=== PATIENT | female | born 1955 | race Hispanic/Latino ===

== ENCOUNTER 2018-08-31 21:00 | Inpatient (IN) | payer OTHER ==
[~2018-08-31] VITALS: Ht 154.9 cm; Wt 67.0 kg
[2018-08-31 21:27] LABS: BASOPHILS % (AUTO) 0.4 % (0.0-5.0); EOSINOPHILS % (AUTO) 1.2 % (0.0-8.0); LYMPHOCYTES % (AUTO) 9.6 % (21.0-51.0); MEAN CORPUSCULAR HEMOGLOBIN 29.7 pg (27.0-33.0); MEAN CORPUSCULAR HGB CONC 33.1 g/dL (32.0-36.0); MEAN CORPUSCULAR VOLUME 89.9 fL (79-99); MONOCYTES % (AUTO) 5.3 % (3.0-13.0); NEUTROPHILS % (AUTO) 83.5 % (40.0-77.0); PLATELET COUNT (AUTO) 286 K/uL (130-400); RED BLOOD CELL COUNT(AUTO) 4.45 MIL/uL (4.00-5.50); RED CELL DISTRIBUTION WIDTH 13.6 % (11.0-15.5); WHITE BLOOD COUNT (AUTO) 12.5 K/uL (4.8-10.8)
[2018-08-31] MEDS ORDERED: MORPHINE SULFATE 4 MG/1ML SYG ONE ×2 (21:36→22:29)
[2018-08-31] MEDS ORDERED: SODIUM CHLORIDE 0.9% 1000ML 1,000 ML IV ONE (21:36)
[2018-08-31] MEDS ORDERED: ONDANSETRON HCL 4 MG/2 ML VIAL ONE (21:36)
[2018-08-31 21:38] LABS: POTASSIUM 3.9 mmol/L (3.5-5.1)
[2018-08-31 21:42] LABS: ALBUMIN 3.5 g/dL (3.5-5.0); BILIRUBIN,TOTAL 0.4 mg/dL (0.2-1.0); TOTAL PROTEIN, SERUM 7.1 g/dL (6.0-8.3)
[2018-08-31] MEDS ORDERED: IOHEXOL-350 75 ML VIAL IV ONE (21:47)
[2018-08-31] MEDS ORDERED: ZOSYN 3.375GM+NS 50ML 50 ML IV ONE (22:29)
[2018-08-31] MEDS ORDERED: SODIUM CHLORIDE 0.9% 50 ML IV ONE (22:30)
[2018-08-31 22:53] LABS: APPEARANCE,URINE Clear (CLEAR); BILIRUBIN,URINE Negative (NEGATIVE); COLOR,URINE Yellow (YELLOW); GLUCOSE, URINE (UA) Negative (NEGATIVE); KETONES,URINE Negative (NEGATIVE); LEUKOCYTE ESTERASE ,URINE Large (NEGATIVE); NITRATE,URINE Negative (NEGATIVE); OCCULT BLOOD,URINE Negative (NEGATIVE); PH,URINE 6.5 (5.0-8.0); PROTEIN,URINE Negative (NEGATIVE); UROBILINOGEN,URINE 0.2 mg/dL (0.2-1.0)
[2018-08-31 23:09] LABS: BACTERIA,URINE Few /HPF (None Seen); RBC,URINE None Seen /HPF (0-1); SQUAMOUS EPITHELIAL CELL,UR Few /HPF (0-2)
[2018-09-01] MEDS ORDERED: SODIUM CHLORIDE 0.9% 1000ML 1,000 ML IV ONE (01:48)
[2018-09-01] MEDS ORDERED: MORPHINE SULFATE 4 MG/1ML SYG ONE (01:48)
[2018-09-01] MEDS ORDERED: HYDROMORPHONE 1 MG/1 ML AMP ONE (01:55)
[2018-09-01] MEDS ORDERED: ACETAMINOPHEN EXTRA STRENGTH 500 MG TABLET ONE (02:02)
[2018-09-01 02:35] VITALS: BP 120/54
[2018-09-01 05:49] LABS: HEMATOCRIT 34.8 % (36-48); MEAN CORPUSCULAR HEMOGLOBIN 31.4 pg (27.0-33.0); MEAN CORPUSCULAR HGB CONC 34.2 g/dL (32.0-36.0); MEAN CORPUSCULAR VOLUME 91.8 fL (79-99); PLATELET COUNT (AUTO) 290 K/uL (130-400); RED BLOOD CELL COUNT(AUTO) 3.79 MIL/uL (4.00-5.50); RED CELL DISTRIBUTION WIDTH 13.7 % (11.0-15.5); WHITE BLOOD COUNT (AUTO) 13.5 K/uL (4.8-10.8)
[2018-09-01 05:54] LABS: CREATININE 1.1 mg/dL (0.5-1.5); POTASSIUM 4.3 mmol/L (3.5-5.1)
[2018-09-01 08:00] VITALS: BP 98/53
[2018-09-01] MEDS: HYDROMORPHONE 1 MG/1 ML AMP IVP PRN ×2 (08:31→22:55)
[2018-09-01] MEDS ORDERED: SODIUM CHLORIDE 0.9% 1000ML 1,000 ML IV SCH (08:52)
[2018-09-01] MEDS: FAMOTIDINE/PF 20 MG/2 ML VIAL IV SCH ×2 (10:29→20:43)
[2018-09-01] MEDS: ONDANSETRON HCL 4 MG/2 ML VIAL IVP PRN (10:29)
[2018-09-01] MEDS: ZOSYN 3.375GM+NS 50ML 50 ML IV SCH ×2 (10:30→16:33)
[2018-09-01 11:00] VITALS: BP 92/44
[2018-09-01] MEDS: SODIUM CHLORIDE 0.9% 1000ML 1,000 ML IV SCH ×2 (12:00→18:38)
[2018-09-01 16:00] VITALS: BP 98/48
[2018-09-01 19:50] VITALS: BP 105/49
[2018-09-01 23:35] VITALS: BP 112/48
[2018-09-02] MEDS: ZOSYN 3.375GM+NS 50ML 50 ML IV SCH ×3 (01:32→16:24)
[2018-09-02] MEDS: SODIUM CHLORIDE 0.9% 1000ML 1,000 ML IV SCH ×3 (03:50→17:38)
[2018-09-02 04:00] VITALS: BP 117/62
[2018-09-02 05:09] LABS: HEMATOCRIT 32.9 % (36-48); MEAN CORPUSCULAR HEMOGLOBIN 30.7 pg (27.0-33.0); MEAN CORPUSCULAR HGB CONC 32.9 g/dL (32.0-36.0); MEAN CORPUSCULAR VOLUME 93.2 fL (79-99); PLATELET COUNT (AUTO) 227 K/uL (130-400); RED BLOOD CELL COUNT(AUTO) 3.53 MIL/uL (4.00-5.50); WHITE BLOOD COUNT (AUTO) 13.4 K/uL (4.8-10.8)
[2018-09-02 05:20] LABS: INR 1.19 (0.85-1.15); PARTIAL THROMBOPLASTIN TIME 33.1 SEC (26.3-35.5); POTASSIUM 3.9 mmol/L (3.5-5.1); PROTHROMBIN TIME 12.5 SEC (9.6-11.6)
[2018-09-02] MEDS: HYDROMORPHONE 1 MG/1 ML AMP IVP PRN ×2 (08:29→16:24)
[2018-09-02] MEDS: FAMOTIDINE/PF 20 MG/2 ML VIAL IV SCH ×2 (08:29→21:09)
[2018-09-02 08:30] VITALS: BP 115/54
[2018-09-02 12:39] VITALS: BP 119/60
[2018-09-02] MEDS: METRONIDAZOLE 500MG/100ML BAG 100 ML IV SCH ×2 (13:32→21:09)
[2018-09-02] MEDS ORDERED: ACETAMINOPHEN 325 MG TAB ONE (16:35)
[2018-09-02 17:12] VITALS: BP 131/60
[2018-09-02 19:00] VITALS: BP 115/58
[2018-09-02 23:00] VITALS: BP 102/57
[2018-09-03] MEDS: ZOSYN 3.375GM+NS 50ML 50 ML IV SCH ×3 (00:43→17:39)
[2018-09-03] MEDS: SODIUM CHLORIDE 0.9% 1000ML 1,000 ML IV SCH ×3 (00:43→20:38)
[2018-09-03 03:00] VITALS: BP 114/56
[2018-09-03] MEDS: METRONIDAZOLE 500MG/100ML BAG 100 ML IV SCH ×3 (05:37→20:38)
[2018-09-03] MEDS: ONDANSETRON HCL 4 MG/2 ML VIAL IVP PRN (05:43)
[2018-09-03] MEDS: MORPHINE SULFATE 4 MG/1ML SYG IVP PRN ×3 (05:43→23:34)
[2018-09-03 05:56] LABS: BASOPHILS % (AUTO) 0.4 % (0.0-5.0); EOSINOPHILS % (AUTO) 1.2 % (0.0-8.0); HEMATOCRIT 31.6 % (36-48); LYMPHOCYTES % (AUTO) 8.9 % (21.0-51.0); MEAN CORPUSCULAR HEMOGLOBIN 31.1 pg (27.0-33.0); MEAN CORPUSCULAR HGB CONC 33.2 g/dL (32.0-36.0); MEAN CORPUSCULAR VOLUME 93.6 fL (79-99); MONOCYTES % (AUTO) 2.9 % (3.0-13.0); NEUTROPHILS % (AUTO) 86.6 % (40.0-77.0); PLATELET COUNT (AUTO) 229 K/uL (130-400); RED BLOOD CELL COUNT(AUTO) 3.38 MIL/uL (4.00-5.50); RED CELL DISTRIBUTION WIDTH 13.8 % (11.0-15.5); WHITE BLOOD COUNT (AUTO) 11.3 K/uL (4.8-10.8)
[2018-09-03 06:05] LABS: CREATININE 0.8 mg/dL (0.5-1.5); POTASSIUM 3.5 mmol/L (3.5-5.1)
[2018-09-03 09:16] VITALS: BP 138/57
[2018-09-03] MEDS: FAMOTIDINE/PF 20 MG/2 ML VIAL IV SCH ×2 (09:55→20:38)
[2018-09-03] MEDS: ENOXAPARIN SODIUM 30 MG/0.3 ML SQ SCH (09:56)
[2018-09-03 12:18] VITALS: BP 144/71
[2018-09-03] MEDS ORDERED: POTASSIUM CHLORIDE 10% ELIXIR 20 MEQ/15 ML UDCUP PO SCH (14:00)
[2018-09-03 16:52] VITALS: BP 140/69
[2018-09-03] MEDS ORDERED: BISACODYL 10 MG SUPP.RECT RC ONE (17:45)
[2018-09-03] MEDS: KETOROLAC TROMETHAMINE 15MG/ML IV PRN (18:00)
[2018-09-03 19:00] VITALS: BP 138/64
[2018-09-04] VITALS (7 sets, daily range): BP systolic 122–156; BP diastolic 56–79
[2018-09-04] MEDS: ZOSYN 3.375GM+NS 50ML 50 ML IV SCH ×3 (00:39→16:23)
[2018-09-04 05:47] LABS: MEAN CORPUSCULAR HGB CONC 32.9 g/dL (32.0-36.0); MEAN CORPUSCULAR VOLUME 91.2 fL (79-99); PLATELET COUNT (AUTO) 239 K/uL (130-400); RED BLOOD CELL COUNT(AUTO) 3.51 MIL/uL (4.00-5.50); RED CELL DISTRIBUTION WIDTH 13.6 % (11.0-15.5); WHITE BLOOD COUNT (AUTO) 11.8 K/uL (4.8-10.8)
[2018-09-04] MEDS: METRONIDAZOLE 500MG/100ML BAG 100 ML IV SCH ×3 (05:51→21:18)
[2018-09-04] MEDS: KETOROLAC TROMETHAMINE 15MG/ML IV PRN (05:51)
[2018-09-04 05:55] LABS: CREATININE 0.9 mg/dL (0.5-1.5); POTASSIUM 3.9 mmol/L (3.5-5.1)
[2018-09-04 06:06] LABS: CRP QUANTITATIVE 269.2 mg/L (0.00-9.0)
[2018-09-04] MEDS: ENOXAPARIN SODIUM 30 MG/0.3 ML SQ SCH (09:56)
[2018-09-04] MEDS: FAMOTIDINE/PF 20 MG/2 ML VIAL IV SCH ×2 (09:56→21:18)
[2018-09-04] MEDS ORDERED: DIATR MEGLU/DIATRIZOATE SODIUM 30 ML BOTTLE ONE (13:16)
[2018-09-04] MEDS: DEXTROSE 5 % AND 0.9 % NACL 1,000 ML IV SCH ×3 (13:47→23:56)
[2018-09-04] MEDS ORDERED: IOHEXOL-350 75 ML VIAL IV ONE (16:17)
[2018-09-05] MEDS: ZOSYN 3.375GM+NS 50ML 50 ML IV SCH ×4 (00:41→23:42)
[2018-09-05 03:00] VITALS: BP 135/72
[2018-09-05 05:36] LABS: MEAN CORPUSCULAR HEMOGLOBIN 30.8 pg (27.0-33.0); MEAN CORPUSCULAR HGB CONC 34.3 g/dL (32.0-36.0); MEAN CORPUSCULAR VOLUME 89.8 fL (79-99); PLATELET COUNT (AUTO) 291 K/uL (130-400); RED BLOOD CELL COUNT(AUTO) 3.68 MIL/uL (4.00-5.50); RED CELL DISTRIBUTION WIDTH 13.3 % (11.0-15.5); WHITE BLOOD COUNT (AUTO) 9.8 K/uL (4.8-10.8)
[2018-09-05 05:57] LABS: BILIRUBIN,TOTAL 0.5 mg/dL (0.2-1.0); CREATININE 0.9 mg/dL (0.5-1.5); TOTAL PROTEIN, SERUM 5.9 g/dL (6.0-8.3)
[2018-09-05] MEDS: METRONIDAZOLE 500MG/100ML BAG 100 ML IV SCH ×3 (05:57→20:29)
[2018-09-05] MEDS: DEXTROSE 5 % AND 0.9 % NACL 1,000 ML IV SCH (05:59)
[2018-09-05 06:01] LABS: POTASSIUM 2.9 mmol/L (3.5-5.1)
[2018-09-05 06:18] LABS: CRP QUANTITATIVE 197.1 mg/L (0.00-9.0)
[2018-09-05] MEDS ORDERED: POTASSIUM CHLORIDE 20MEQ/100ML 100 ML IV PRN ×2 (07:00)
[2018-09-05] MEDS ORDERED: POTASSIUM CHLORIDE 20 MEQ ERTAB PO PRN (07:00)
[2018-09-05] MEDS ORDERED: POTASSIUM CHLORIDE 10% ELIXIR 20 MEQ/15 ML UDCUP PO PRN (07:00)
[2018-09-05] MEDS ORDERED: LIDOCAINE HCL-MPF 1% 2ML VIAL IVP PRN ×2 (07:00)
[2018-09-05 08:00] VITALS: BP 145/78
[2018-09-05] MEDS ORDERED: POTASSIUM CHLORIDE 10% ELIXIR 20 MEQ/15 ML UDCUP PO SCH (09:00)
[2018-09-05] MEDS: FAMOTIDINE/PF 20 MG/2 ML VIAL IV SCH ×2 (10:59→20:30)
[2018-09-05] MEDS: ENOXAPARIN SODIUM 30 MG/0.3 ML SQ SCH (11:00)
[2018-09-05] MEDS: POTASSIUM CHLORIDE IV SCH ×2 (11:01→19:00)
[2018-09-05] MEDS: NACL IV SCH ×2 (11:01→19:00)
[2018-09-05] MEDS: DEXTROSE IV SCH ×2 (11:01→19:00)
[2018-09-05 12:00] VITALS: BP 141/65
[2018-09-05] MEDS ORDERED: KETOROLAC TROMETHAMINE 15MG/ML IV PRN (12:45)
[2018-09-05] MEDS ORDERED: KETOROLAC TROMETHAMINE 30MG/ML ONE (12:57)
[2018-09-05 16:00] VITALS: BP 138/75
[2018-09-05 19:00] VITALS: BP 158/77
[2018-09-06] VITALS: BP 141/77
[2018-09-06 04:00] VITALS: BP 159/73
[2018-09-06] MEDS: POTASSIUM CHLORIDE IV SCH ×2 (05:00→18:24)
[2018-09-06] MEDS: DEXTROSE IV SCH ×2 (05:00→18:24)
[2018-09-06] MEDS: NACL IV SCH ×2 (05:00→18:24)
[2018-09-06 07:00] VITALS: BP 150/65
[2018-09-06] MEDS: METRONIDAZOLE 500MG/100ML BAG 100 ML IV SCH ×3 (07:25→20:46)
[2018-09-06] MEDS: KETOROLAC TROMETHAMINE 15MG/ML IV PRN ×2 (07:27→13:22)
[2018-09-06] MEDS: FAMOTIDINE/PF 20 MG/2 ML VIAL IV SCH ×2 (09:37→20:46)
[2018-09-06] MEDS: ZOSYN 3.375GM+NS 50ML 50 ML IV SCH ×2 (09:37→18:24)
[2018-09-06] MEDS: ENOXAPARIN SODIUM 30 MG/0.3 ML SQ SCH (09:37)
[2018-09-06 11:00] VITALS: BP 146/77
[2018-09-06 11:17] LABS: CREATININE 0.8 mg/dL (0.5-1.5); HEMATOCRIT 33.1 % (36-48); MEAN CORPUSCULAR HEMOGLOBIN 29.9 pg (27.0-33.0); MEAN CORPUSCULAR HGB CONC 33.4 g/dL (32.0-36.0); MEAN CORPUSCULAR VOLUME 89.5 fL (79-99); PLATELET COUNT (AUTO) 278 K/uL (130-400); RED CELL DISTRIBUTION WIDTH 13.6 % (11.0-15.5); WHITE BLOOD COUNT (AUTO) 12.6 K/uL (4.8-10.8)
[2018-09-06] MEDS ORDERED: POTASSIUM CHLORIDE 10MEQ/100ML 100 ML IV PRN ×2 (13:00→13:30)
[2018-09-06] MEDS ORDERED: POTASSIUM CHLORIDE 10% ELIXIR 20 MEQ/15 ML UDCUP PO PRN ×2 (13:00→13:30)
[2018-09-06] MEDS ORDERED: LIDOCAINE HCL-MPF 1% 2ML VIAL IVP PRN (13:00)
[2018-09-06] MEDS ORDERED: POTASSIUM CHLORIDE 20 MEQ ERTAB PO PRN ×2 (13:00→13:30)
[2018-09-06 16:00] VITALS: BP 154/67
[2018-09-06] MEDS: HYDROMORPHONE 1 MG/1 ML AMP IVP PRN (18:26)
[2018-09-06 19:00] VITALS: BP 135/64
[2018-09-06] MEDS ORDERED: POTASSIUM CHLORIDE 20MEQ/100ML 100 ML IV ONE (20:06)
[2018-09-07] VITALS (7 sets, daily range): BP systolic 128–162; BP diastolic 66–77
[2018-09-07] MEDS: POTASSIUM CHLORIDE IV SCH ×2 (01:00→13:54)
[2018-09-07] MEDS: DEXTROSE IV SCH ×2 (01:00→13:54)
[2018-09-07] MEDS: NACL IV SCH ×2 (01:00→13:54)
[2018-09-07] MEDS: ZOSYN 3.375GM+NS 50ML 50 ML IV SCH ×3 (01:17→20:15)
[2018-09-07] MEDS: HYDROMORPHONE 1 MG/1 ML AMP IVP PRN ×2 (02:16→09:01)
[2018-09-07] MEDS: METRONIDAZOLE 500MG/100ML BAG 100 ML IV SCH ×3 (05:07→20:09)
[2018-09-07 05:19] LABS: HEMATOCRIT 31.7 % (36-48); MEAN CORPUSCULAR HEMOGLOBIN 30.8 pg (27.0-33.0); MEAN CORPUSCULAR HGB CONC 34.1 g/dL (32.0-36.0); MEAN CORPUSCULAR VOLUME 90.5 fL (79-99); PLATELET COUNT (AUTO) 330 K/uL (130-400); RED BLOOD CELL COUNT(AUTO) 3.51 MIL/uL (4.00-5.50); RED CELL DISTRIBUTION WIDTH 13.9 % (11.0-15.5); WHITE BLOOD COUNT (AUTO) 10.2 K/uL (4.8-10.8)
[2018-09-07 05:25] LABS: CREATININE 0.9 mg/dL (0.5-1.5); MAGNESIUM 1.5 mg/dL (1.80-2.40); POTASSIUM 3.3 mmol/L (3.5-5.1)
[2018-09-07] MEDS: FAMOTIDINE/PF 20 MG/2 ML VIAL IV SCH ×2 (08:57→20:09)
[2018-09-07] MEDS: ENOXAPARIN SODIUM 30 MG/0.3 ML SQ SCH (09:03)
[2018-09-07] MEDS ORDERED: IOHEXOL-350 75 ML VIAL IV ONE (09:16)
[2018-09-07] MEDS ORDERED: DIATR MEGLU/DIATRIZOATE SODIUM 30 ML BOTTLE ONE ×2 (09:16→11:58)
[2018-09-07] MEDS: MAGNESIUM 2GM PREMIX 50ML 50 ML IV PRN (13:57)
[2018-09-08] VITALS (14 sets, daily range): BP systolic 129–159; BP diastolic 66–83
[2018-09-08] MEDS: ZOSYN 3.375GM+NS 50ML 50 ML IV SCH ×3 (01:53→17:34)
[2018-09-08] MEDS: POTASSIUM CHLORIDE IV SCH ×3 (03:25→17:00)
[2018-09-08] MEDS: DEXTROSE IV SCH ×3 (03:25→17:00)
[2018-09-08] MEDS: NACL IV SCH ×3 (03:25→17:00)
[2018-09-08] MEDS: HYDROMORPHONE 1 MG/1 ML AMP IVP PRN ×3 (03:25→18:34)
[2018-09-08 05:13] LABS: HEMATOCRIT 31.6 % (36-48); MEAN CORPUSCULAR HEMOGLOBIN 30.7 pg (27.0-33.0); MEAN CORPUSCULAR HGB CONC 34.1 g/dL (32.0-36.0); MEAN CORPUSCULAR VOLUME 89.9 fL (79-99); PLATELET COUNT (AUTO) 390 K/uL (130-400); RED BLOOD CELL COUNT(AUTO) 3.52 MIL/uL (4.00-5.50); WHITE BLOOD COUNT (AUTO) 11.6 K/uL (4.8-10.8)
[2018-09-08 05:29] LABS: CREATININE 0.8 mg/dL (0.5-1.5); MAGNESIUM 1.7 mg/dL (1.80-2.40); POTASSIUM 3.2 mmol/L (3.5-5.1)
[2018-09-08] MEDS: METRONIDAZOLE 500MG/100ML BAG 100 ML IV SCH ×3 (06:10→20:23)
[2018-09-08] MEDS: FAMOTIDINE/PF 20 MG/2 ML VIAL IV SCH ×2 (08:42→20:01)
[2018-09-08] MEDS: MAGNESIUM 2GM PREMIX 50ML 50 ML IV PRN (13:05)
[2018-09-08] MEDS ORDERED: LIDOCAINE HCL 2% 20ML ONE (13:26)
[2018-09-08] MEDS ORDERED: MIDAZOLAM HCL 1 MG/ML 2ML VIAL ONE (13:37)
[2018-09-08] MEDS ORDERED: FENTANYL CITRATE PF 50 MCG/1 ML 2ML VIAL ONE (13:37)
[2018-09-08] MEDS: ENOXAPARIN SODIUM 30 MG/0.3 ML SQ SCH (15:37)
[2018-09-09] MEDS: ZOSYN 3.375GM+NS 50ML 50 ML IV SCH ×3 (02:14→17:15)
[2018-09-09] MEDS: HYDROMORPHONE 1 MG/1 ML AMP IVP PRN ×2 (02:14→18:00)
[2018-09-09 03:00] VITALS: BP 131/71
[2018-09-09] MEDS: POTASSIUM CHLORIDE IV SCH ×2 (03:00→18:07)
[2018-09-09] MEDS: DEXTROSE IV SCH ×2 (03:00→18:07)
[2018-09-09] MEDS: NACL IV SCH ×2 (03:00→18:07)
[2018-09-09 04:51] LABS: BASOPHILS % (AUTO) 0.5 % (0.0-5.0); EOSINOPHILS % (AUTO) 2.4 % (0.0-8.0); HEMATOCRIT 32.3 % (36-48); LYMPHOCYTES % (AUTO) 13.8 % (21.0-51.0); MEAN CORPUSCULAR HEMOGLOBIN 30.1 pg (27.0-33.0); MEAN CORPUSCULAR HGB CONC 33.6 g/dL (32.0-36.0); MEAN CORPUSCULAR VOLUME 89.7 fL (79-99); MONOCYTES % (AUTO) 7.8 % (3.0-13.0); NEUTROPHILS % (AUTO) 75.5 % (40.0-77.0); PLATELET COUNT (AUTO) 389 K/uL (130-400); WHITE BLOOD COUNT (AUTO) 8.7 K/uL (4.8-10.8)
[2018-09-09 05:21] LABS: CREATININE 0.9 mg/dL (0.5-1.5); MAGNESIUM 2.1 mg/dL (1.80-2.40); POTASSIUM 3.3 mmol/L (3.5-5.1)
[2018-09-09] MEDS: METRONIDAZOLE 500MG/100ML BAG 100 ML IV SCH ×3 (05:59→21:05)
[2018-09-09 07:00] VITALS: BP 152/70
[2018-09-09] MEDS: FAMOTIDINE/PF 20 MG/2 ML VIAL IV SCH ×2 (09:54→21:05)
[2018-09-09] MEDS: ENOXAPARIN SODIUM 30 MG/0.3 ML SQ SCH (09:54)
[2018-09-09 11:00] VITALS: BP 144/71
[2018-09-09 16:00] VITALS: BP 152/82
[2018-09-09 20:00] VITALS: BP 155/69
[2018-09-09] MEDS ORDERED: MORPHINE SULFATE 2 MG/ML 1ML SYG IVP PRN (23:00)
[2018-09-10] VITALS: BP 140/79
[2018-09-10] MEDS: ZOSYN 3.375GM+NS 50ML 50 ML IV SCH ×2 (01:32→10:21)
[2018-09-10] MEDS: HYDROMORPHONE 1 MG/1 ML AMP IVP PRN (02:02)
[2018-09-10 04:00] VITALS: BP 148/76
[2018-09-10 04:39] LABS: BASOPHILS % (AUTO) 0.6 % (0.0-5.0); EOSINOPHILS % (AUTO) 2.3 % (0.0-8.0); HEMATOCRIT 32.4 % (36-48); LYMPHOCYTES % (AUTO) 14.6 % (21.0-51.0); MEAN CORPUSCULAR HEMOGLOBIN 31.1 pg (27.0-33.0); MEAN CORPUSCULAR HGB CONC 34.6 g/dL (32.0-36.0); MEAN CORPUSCULAR VOLUME 89.9 fL (79-99); MONOCYTES % (AUTO) 8.5 % (3.0-13.0); PLATELET COUNT (AUTO) 431 K/uL (130-400); RED CELL DISTRIBUTION WIDTH 13.9 % (11.0-15.5); WHITE BLOOD COUNT (AUTO) 7.4 K/uL (4.8-10.8)
[2018-09-10 04:58] LABS: ALBUMIN 2.1 g/dL (3.5-5.0); BILIRUBIN,TOTAL 0.3 mg/dL (0.2-1.0); CREATININE 0.9 mg/dL (0.5-1.5); POTASSIUM 3.8 mmol/L (3.5-5.1); TOTAL PROTEIN, SERUM 6.1 g/dL (6.0-8.3)
[2018-09-10 07:00] VITALS: BP 149/60
[2018-09-10] MEDS: METRONIDAZOLE 500MG/100ML BAG 100 ML IV SCH ×3 (08:00→22:59)
[2018-09-10] MEDS: FAMOTIDINE/PF 20 MG/2 ML VIAL IV SCH ×2 (10:21→21:00)
[2018-09-10] MEDS: ENOXAPARIN SODIUM 30 MG/0.3 ML SQ SCH (10:22)
[2018-09-10 11:00] VITALS: BP 142/67
[2018-09-10] MEDS: DEXTROSE IV SCH ×2 (13:12→23:00)
[2018-09-10] MEDS: NACL IV SCH ×2 (13:12→23:00)
[2018-09-10] MEDS: POTASSIUM CHLORIDE IV SCH ×2 (13:12→23:00)
[2018-09-10] MEDS ORDERED: LEVOFLOXACIN 500 MG/D5W 100 ML 100 ML IV SCH (14:45)
[2018-09-10] MEDS: MORPHINE SULFATE 4 MG/1ML SYG IVP PRN (16:41)
[2018-09-10 20:00] VITALS: BP 150/84
[2018-09-11 00:23] VITALS: BP 148/58
[2018-09-11] MEDS: MORPHINE SULFATE 4 MG/1ML SYG IVP PRN ×2 (03:39→20:20)
[2018-09-11 04:25] VITALS: BP 149/78
[2018-09-11] MEDS: POTASSIUM CHLORIDE IV SCH (05:00)
[2018-09-11] MEDS: DEXTROSE IV SCH (05:00)
[2018-09-11] MEDS: NACL IV SCH (05:00)
[2018-09-11 05:42] LABS: BASOPHILS % (AUTO) 0.5 % (0.0-5.0); EOSINOPHILS % (AUTO) 1.5 % (0.0-8.0); HEMATOCRIT 35.5 % (36-48); LYMPHOCYTES % (AUTO) 16.3 % (21.0-51.0); MEAN CORPUSCULAR HEMOGLOBIN 30.2 pg (27.0-33.0); MEAN CORPUSCULAR HGB CONC 33.6 g/dL (32.0-36.0); MEAN CORPUSCULAR VOLUME 89.7 fL (79-99); NEUTROPHILS % (AUTO) 73.7 % (40.0-77.0); PLATELET COUNT (AUTO) 455 K/uL (130-400); RED BLOOD CELL COUNT(AUTO) 3.96 MIL/uL (4.00-5.50); WHITE BLOOD COUNT (AUTO) 8.7 K/uL (4.8-10.8)
[2018-09-11 05:51] LABS: CREATININE 0.8 mg/dL (0.5-1.5)
[2018-09-11] MEDS: METRONIDAZOLE 500MG/100ML BAG 100 ML IV SCH (06:17)
[2018-09-11] MEDS: FAMOTIDINE/PF 20 MG/2 ML VIAL IV SCH ×2 (08:33→20:21)
[2018-09-11] MEDS: ENOXAPARIN SODIUM 30 MG/0.3 ML SQ SCH (08:33)
[2018-09-11 08:58] VITALS: BP 146/69
[2018-09-11 12:03] VITALS: BP 146/66
[2018-09-11] MEDS: LEVOFLOXACIN 500 MG TABLET PO SCH (13:03)
[2018-09-11] MEDS: METRONIDAZOLE 500 MG TABLET PO SCH ×2 (14:34→20:20)
[2018-09-11 16:42] VITALS: BP 149/68
[2018-09-11] MEDS ORDERED: POTASSIUM CHLORIDE IV SCH (17:00)
[2018-09-11] MEDS ORDERED: DEXTROSE IV SCH (17:00)
[2018-09-11] MEDS ORDERED: NACL IV SCH (17:00)
[2018-09-11 20:00] VITALS: BP 135/67
[2018-09-11] MEDS ORDERED: DICYCLOMINE HCL 10 MG/ML 2ML AMP IM PRN (20:15)
[2018-09-12] VITALS: BP 136/55
[2018-09-12 04:00] VITALS: BP 130/71
[2018-09-12 05:30] LABS: HEMATOCRIT 37.9 % (36-48); MEAN CORPUSCULAR HEMOGLOBIN 30.6 pg (27.0-33.0); MEAN CORPUSCULAR VOLUME 90.1 fL (79-99); PLATELET COUNT (AUTO) 563 K/uL (130-400); RED BLOOD CELL COUNT(AUTO) 4.21 MIL/uL (4.00-5.50); WHITE BLOOD COUNT (AUTO) 10.9 K/uL (4.8-10.8)
[2018-09-12 05:46] LABS: POTASSIUM 3.9 mmol/L (3.5-5.1)
[2018-09-12 08:00] VITALS: BP 141/64
[2018-09-12] MEDS: METRONIDAZOLE 500 MG TABLET PO SCH (09:27)
[2018-09-12] MEDS: FLUCONAZOLE 200 MG/NS 100 ML 100 ML IV SCH (09:27)
[2018-09-12] MEDS: LEVOFLOXACIN 500 MG TABLET PO SCH (09:27)
[2018-09-12] MEDS: FAMOTIDINE/PF 20 MG/2 ML VIAL IV SCH ×2 (09:27→22:46)
[2018-09-12] MEDS: ENOXAPARIN SODIUM 30 MG/0.3 ML SQ SCH (09:28)
[2018-09-12 12:00] VITALS: BP 145/77
[2018-09-12] MEDS: LEVOFLOXACIN 500 MG/D5W 100 ML 100 ML IV SCH (12:35)
[2018-09-12] MEDS: METRONIDAZOLE 500MG/100ML BAG 100 ML IV SCH ×2 (14:33→22:46)
[2018-09-12 16:00] VITALS: BP 136/63
[2018-09-12 19:15] VITALS: BP 140/69
[2018-09-12] MEDS: MORPHINE SULFATE 4 MG/1ML SYG IVP PRN (22:47)
[2018-09-12] MEDS ORDERED: SIMETHICONE 80 MG TAB.CHEW PO PRN (23:15)
[2018-09-13 00:12] VITALS: BP 128/60
[2018-09-13 04:25] VITALS: BP 137/76
[2018-09-13 06:35] LABS: HEMATOCRIT 37.4 % (36-48); MEAN CORPUSCULAR HEMOGLOBIN 30.8 pg (27.0-33.0); MEAN CORPUSCULAR VOLUME 90.5 fL (79-99); PLATELET COUNT (AUTO) 581 K/uL (130-400); RED BLOOD CELL COUNT(AUTO) 4.13 MIL/uL (4.00-5.50); RED CELL DISTRIBUTION WIDTH 14.5 % (11.0-15.5); WHITE BLOOD COUNT (AUTO) 10.3 K/uL (4.8-10.8)
[2018-09-13 06:45] LABS: CREATININE 0.9 mg/dL (0.5-1.5); POTASSIUM 3.9 mmol/L (3.5-5.1)
[2018-09-13] MEDS: METRONIDAZOLE 500MG/100ML BAG 100 ML IV SCH ×3 (06:45→21:36)
[2018-09-13 08:00] VITALS: BP 132/65
[2018-09-13] MEDS: FAMOTIDINE/PF 20 MG/2 ML VIAL IV SCH (09:34)
[2018-09-13] MEDS: ENOXAPARIN SODIUM 30 MG/0.3 ML SQ SCH (09:35)
[2018-09-13] MEDS: FLUCONAZOLE 200 MG/NS 100 ML 100 ML IV SCH (09:36)
[2018-09-13 10:49] LABS: INR 1.04 (0.85-1.15); PARTIAL THROMBOPLASTIN TIME 30.1 SEC (26.3-35.5); PROTHROMBIN TIME 10.9 SEC (9.6-11.6)
[2018-09-13 12:00] VITALS: BP 127/51
[2018-09-13] MEDS: LEVOFLOXACIN 500 MG/D5W 100 ML 100 ML IV SCH (12:26)
[2018-09-13 16:00] VITALS: BP 130/75
[2018-09-13 20:00] VITALS: BP_SYST 62
[2018-09-13] MEDS: FAMOTIDINE 20MG TAB 20 MG TAB PO SCH (21:35)
[2018-09-13] MEDS: MORPHINE SULFATE 4 MG/1ML SYG IVP PRN (23:58)
[2018-09-14] VITALS: BP 121/71
[2018-09-14 04:00] VITALS: BP 127/57
[2018-09-14] MEDS: METRONIDAZOLE 500MG/100ML BAG 100 ML IV SCH ×3 (05:16→21:14)
[2018-09-14 05:42] LABS: HEMATOCRIT 36.6 % (36-48); MEAN CORPUSCULAR HEMOGLOBIN 30.9 pg (27.0-33.0); MEAN CORPUSCULAR HGB CONC 34.2 g/dL (32.0-36.0); MEAN CORPUSCULAR VOLUME 90.2 fL (79-99); PLATELET COUNT (AUTO) 581 K/uL (130-400); RED BLOOD CELL COUNT(AUTO) 4.06 MIL/uL (4.00-5.50); RED CELL DISTRIBUTION WIDTH 14.2 % (11.0-15.5); WHITE BLOOD COUNT (AUTO) 7.6 K/uL (4.8-10.8)
[2018-09-14 06:09] LABS: CREATININE 0.9 mg/dL (0.5-1.5); POTASSIUM 3.7 mmol/L (3.5-5.1)
[2018-09-14 08:00] VITALS: BP 136/69
[2018-09-14] MEDS: FLUCONAZOLE 200 MG/NS 100 ML 100 ML IV SCH (09:59)
[2018-09-14] MEDS: ENOXAPARIN SODIUM 40 MG/0.4 ML SYRINGE SQ SCH (10:00)
[2018-09-14] MEDS: FAMOTIDINE 20MG TAB 20 MG TAB PO SCH ×2 (10:01→21:14)
[2018-09-14 12:00] VITALS: BP 131/65
[2018-09-14] MEDS: LEVOFLOXACIN 500 MG/D5W 100 ML 100 ML IV SCH (12:38)
[2018-09-14 16:00] VITALS: BP 141/70
[2018-09-14 19:37] VITALS: BP 112/78
[2018-09-14] MEDS: HYDROCODONE/ACETAMINOPHEN 5/325 MG TAB PO PRN (21:35)
[2018-09-15] VITALS (7 sets, daily range): BP systolic 122–150; BP diastolic 54–74
[2018-09-15] MEDS: HYDROCODONE/ACETAMINOPHEN 5/325 MG TAB PO PRN ×2 (04:30→18:07)
[2018-09-15 04:36] LABS: HEMATOCRIT 37.9 % (36-48); MEAN CORPUSCULAR HEMOGLOBIN 29.7 pg (27.0-33.0); MEAN CORPUSCULAR HGB CONC 33.2 g/dL (32.0-36.0); MEAN CORPUSCULAR VOLUME 89.5 fL (79-99); PLATELET COUNT (AUTO) 535 K/uL (130-400); RED BLOOD CELL COUNT(AUTO) 4.23 MIL/uL (4.00-5.50); RED CELL DISTRIBUTION WIDTH 14.4 % (11.0-15.5); WHITE BLOOD COUNT (AUTO) 8.3 K/uL (4.8-10.8)
[2018-09-15 05:09] LABS: CREATININE 0.8 mg/dL (0.5-1.5); POTASSIUM 3.6 mmol/L (3.5-5.1)
[2018-09-15] MEDS: METRONIDAZOLE 500MG/100ML BAG 100 ML IV SCH ×3 (05:14→21:41)
[2018-09-15] MEDS: FAMOTIDINE 20MG TAB 20 MG TAB PO SCH ×2 (08:41→21:41)
[2018-09-15] MEDS: ENOXAPARIN SODIUM 40 MG/0.4 ML SYRINGE SQ SCH (08:42)
[2018-09-15] MEDS: FLUCONAZOLE 200 MG/NS 100 ML 100 ML IV SCH (08:42)
[2018-09-15] MEDS: LEVOFLOXACIN 500 MG/D5W 100 ML 100 ML IV SCH (12:04)
[2018-09-16] MEDS: HYDROCODONE/ACETAMINOPHEN 5/325 MG TAB PO PRN (00:16)
[2018-09-16 03:54] VITALS: BP 125/65
[2018-09-16 05:53] LABS: MEAN CORPUSCULAR HEMOGLOBIN 30.4 pg (27.0-33.0); MEAN CORPUSCULAR HGB CONC 33.5 g/dL (32.0-36.0); MEAN CORPUSCULAR VOLUME 90.7 fL (79-99); PLATELET COUNT (AUTO) 506 K/uL (130-400); RED BLOOD CELL COUNT(AUTO) 4.19 MIL/uL (4.00-5.50); RED CELL DISTRIBUTION WIDTH 14.7 % (11.0-15.5); WHITE BLOOD COUNT (AUTO) 5.7 K/uL (4.8-10.8)
[2018-09-16 06:07] LABS: CREATININE 0.8 mg/dL (0.5-1.5); POTASSIUM 4.2 mmol/L (3.5-5.1)
[2018-09-16] MEDS: METRONIDAZOLE 500MG/100ML BAG 100 ML IV SCH (06:31)
[2018-09-16 08:00] VITALS: BP 128/60
[2018-09-16] MEDS: FLUCONAZOLE 200 MG/NS 100 ML 100 ML IV SCH (09:55)
[2018-09-16] MEDS: FAMOTIDINE 20MG TAB 20 MG TAB PO SCH (09:55)
[2018-09-16] MEDS ORDERED: LEVO500T89 PO (09:56)
[2018-09-16] MEDS ORDERED: FLUC200T8 PO (09:56)
[2018-09-16] MEDS ORDERED: METR-224 PO (09:56)
[2018-09-16] MEDS: ENOXAPARIN SODIUM 40 MG/0.4 ML SYRINGE SQ SCH (09:57)
[2018-09-16] MEDS ORDERED: FAMO-136 PO (09:57)
[2018-09-16] MEDS ORDERED: ASPI-555 PO (09:58)
[2018-09-16 12:00] VITALS: BP 136/73
== END 2018-09-16 16:00 | disposition home or self-care (01) | DRG 392 ==
LOC: EDH 21:00 → EDHIP 21:01 → 3BH 09-01 01:06
PROVIDERS: ADMIT Internal Medicine; ATTEND Internal Medicine
PROC: 0J9C3ZZ Drainage of Pelvic Region Subcutaneous Tissue and Fascia, Percutaneous Approach (ICD-10-PCS; principal; 2018-09-11)
DX: K57.20 Diverticulitis of large intestine with perforation and abscess without bleeding (principal); N39.0 Urinary tract infection, site not specified; J90 Pleural effusion, not elsewhere classified; N13.6 Pyonephrosis; I10 Essential (primary) hypertension; E78.5 Hyperlipidemia, unspecified; E87.6 Hypokalemia; N73.9 Female pelvic inflammatory disease, unspecified; Z60.2 Problems related to living alone; Z86.79 Personal history of other diseases of the circulatory system
CPT/HCPCS: 10030; 36415; 74176; 74177; 74178; 77012; 80048; 80053; 81001; 82150; 83690; 83735; 85025; 85027; 85610; 85730; 86140; 87040; 87071; 87205; 93005; 97039; 99152; 99153; G0378; J0500; J1170; J1450; J1650; J1885; J1956; J2250; J2270; J2405; J2543; J3010; J3475; J3480; J3490; J7030; J7042; Q9963; Q9967

== ENCOUNTER 2023-01-19 05:35 | Day surgery (SDC) | payer OTHER ==
[2023-01-14 11:03] VITALS: BP 162/67
[2023-01-14 11:04] LABS: BASOPHILS % (AUTO) 0.5 % (0.0-5.0); EOSINOPHILS % (AUTO) 2.7 % (0.0-8.0); LYMPHOCYTES % (AUTO) 25.5 % (21.0-51.0); MEAN CORPUSCULAR HEMOGLOBIN 30.5 pg (27.0-33.0); MEAN CORPUSCULAR VOLUME 92.4 fL (79-99); MONOCYTES % (AUTO) 6.9 % (3.0-13.0); PLATELET COUNT (AUTO) 352 K/uL (130-400); RED BLOOD CELL COUNT(AUTO) 4.76 MIL/uL (4.00-5.50); RED CELL DISTRIBUTION WIDTH 12.8 % (11.0-15.5); WHITE BLOOD COUNT (AUTO) 7.5 K/uL (4.8-10.8)
[2023-01-14 11:44] LABS: INR 0.93 (0.85-1.15); PROTHROMBIN TIME 10.2 SEC (9.6-11.6)
[2023-01-14 11:45] LABS: PARTIAL THROMBOPLASTIN TIME 32.8 SEC (26.3-35.5)
[2023-01-14 11:58] LABS: APPEARANCE,URINE CLEAR (CLEAR); BILIRUBIN,URINE NEGATIVE (NEGATIVE); COLOR,URINE COLORLESS (YELLOW); GLUCOSE, URINE (UA) NEGATIVE (NEGATIVE); KETONES,URINE NEGATIVE (NEGATIVE); LEUKOCYTE ESTERASE ,URINE 75 Leu/uL (NEGATIVE); NITRATE,URINE NEGATIVE (NEGATIVE); OCCULT BLOOD,URINE NEGATIVE (NEGATIVE); PROTEIN,URINE NEGATIVE (NEGATIVE); UROBILINOGEN,URINE 0.2 mg/dL (0.2-1.0)
[2023-01-14 12:04] LABS: BACTERIA,URINE RARE /HPF (None Seen); RBC,URINE 0-1 /HPF (0-1); SQUAMOUS EPITHELIAL CELL,UR RARE /HPF (0-2)
[~2023-01-19] VITALS: Ht 160 cm; Wt 66.1 kg
[2023-01-19] VITALS (18 sets, daily range): BP systolic 122–178; BP diastolic 56–85
[~2023-01-19 05:35] MED LIST: AMLO-258 PO; CHLO25TA3 PO; ESTRADIOL 0.01% VG; FAMO20TA8 PO; LISI5TAB21 PO; ROSU20TA31 PO
[2023-01-19] MEDS ORDERED: LACTATED RINGERS 1000ML 1,000 ML IV ONE (05:46)
[2023-01-19] MEDS ORDERED: LEVO5TAB13 PO (06:19)
[2023-01-19] MEDS ORDERED: OXYB-66 PO (06:19)
[2023-01-19] MEDS ORDERED: CITA10TA13 PO (06:19)
[2023-01-19] MEDS ORDERED: LIDOCAINE PF 100MG/5ML (2%) SYRINGE 5ML ONE (06:46)
[2023-01-19] MEDS ORDERED: SUCCINYLCHOLINE CHLORIDE 20 MG/ML 10 ML VIAL ONE (06:46)
[2023-01-19] MEDS ORDERED: DEXAMETHASONE SOD PHOSPHATE 10MG/ML 1ML VIAL ONE (06:46)
[2023-01-19] MEDS ORDERED: PROPOFOL 10 MG/ML 20ML VIAL IV ONE (06:47)
[2023-01-19] MEDS ORDERED: ONDANSETRON 4MG INJ ONE ×2 (06:47→08:46)
[2023-01-19] MEDS ORDERED: GLYCOPYRROLATE 1 MG/5 ML SYRINGE ONE (06:47)
[2023-01-19] MEDS ORDERED: MIDAZOLAM HCL 1 MG/ML 2ML VIAL ONE (06:48)
[2023-01-19] MEDS ORDERED: FENTANYL CITRATE PF 50 MCG/1 ML 2ML VIAL ONE ×2 (06:48→07:53)
[2023-01-19] MEDS ORDERED: NEOSTIGMINE 5MG/5ML SYR IV ONE (06:48)
[2023-01-19] MEDS ORDERED: ROCURONIUM 10MG/1ML SYR 10 MG/ML ML ONE (06:48)
[2023-01-19] MEDS ORDERED: CEFAZOLIN SODIUM 2 GM VIAL IVPB ONE (07:45)
[2023-01-19] MEDS ORDERED: CEFAZOLIN SODIUM 1 GM VIAL ONE (07:46)
[2023-01-19] MEDS ORDERED: ESMOLOL HCL 10 MG/ML 10 ML VIAL ONE (08:07)
[2023-01-19] MEDS ORDERED: MEPERIDINE-PF 25 MG/ML SYG ONE ×2 (08:46→08:58)
[2023-01-19] MEDS ORDERED: KETOROLAC 30MG VIAL (30MG/ML) ONE (08:46)
[2023-01-19] MEDS ORDERED: ACET-2079 PO (10:20)
== END 2023-01-19 10:30 | disposition home or self-care (01) ==
LOC: DAH 05:35
PROVIDERS: ATTEND Obstetrics & Gynecology
DX: N95.0 Postmenopausal bleeding (principal); Z20.822 Contact with and (suspected) exposure to COVID-19; N93.9 Abnormal uterine and vaginal bleeding, unspecified; N95.8 Other specified menopausal and perimenopausal disorders; N88.8 Other specified noninflammatory disorders of cervix uteri; I10 Essential (primary) hypertension; E78.5 Hyperlipidemia, unspecified; I25.2 Old myocardial infarction; F32.A Depression, unspecified; Z79.01 Long term (current) use of anticoagulants; Z79.899 Other long term (current) drug therapy; Z98.890 Other specified postprocedural states; Z98.891 History of uterine scar from previous surgery; Z90.710 Acquired absence of both cervix and uterus
CPT/HCPCS: 85025; 85610; 85730; 86850 ×2; 86900 ×2; 86901 ×2; 87088; 87426; 81001; 36415 ×2; 93005; 57530; 88307; A4663; J7120 ×2; A4351; A4606; J3010 ×2; J0690 ×2; J3490 ×2; J1100; J2710; J0330; J2001; J2250; J2704; J2405 ×2; J1885; J2175 ×2; A4649; A4215; A4223; A4222; A4221

== ENCOUNTER → 2025-05-25 | Outpatient (CLI) | payer OTHER, MEDICAID ==
[~2025-05-25] MED LIST changes: +ACET-2079 PO; +CITA10TA13 PO; +IOHEXOL 350 MG/ML 100ML INFUS..BTL IV ONE; +LEVO5TAB13 PO; +OXYB-66 PO; -ROSU20TA31 PO; +ROSU20TA98 PO
--- NOTE | 2025-05-26 07:05 | HMCIMG ---
EXAMINATION: ULTRASOUND OF THE ABDOMEN WITH COLOR DOPPLER. CLINICAL HISTORY: Elevated LFT. COMPARISON: Ultrasound of the abdomen dated 08/22/[address] abdomen and pelvis without contrast dated 09/13/2018. TECHNIQUE: Real-time grayscale ultrasound images of the abdomen. In addition, color Doppler is medically necessary to perform in order to evaluate vascularity and blood flow. FINDINGS: Liver: Normal in caliber, the right hepatic lobe measures 14.6 cm in the craniocaudal dimension. There is increased echogenicity of the hepatic parenchyma. There is no focal hepatic abnormality or intrahepatic biliary ductal dilatation. There is normal spectral Doppler of the main portal vein. Gallbladder: Within normal limits with normal wall thickness (0.13 cm). No hyperemia or pericholecystic free fluid. There is no cholelithiasis. Common bile duct is normal in caliber, measuring 0.46 cm. Spleen is normal in caliber and measures 9.1 cm in craniocaudal dimension. There is a calcific speck that measures 0.7 x 0.6 cm. Pancreas: Normal in caliber and echotexture. No calcification or dilated pancreatic duct. The kidneys are normal in caliber, the right kidney measures 8.8 x 3.7 x 4.0 cm and the left kidney measures 9.9 x 4.0 x 4.4 cm in craniocaudal, AP, and transverse dimensions respectively. There is normal renal cortical thickness, and cortical echogenicity. There is no renal calculus or hydronephrosis. Visualized aspects of the abdominal aorta and inferior vena cava are unremarkable. IMPRESSION: Hepatic steatosis. Calcification in the spleen. /Robin
--- NOTE | 2025-05-27 08:50 | CARDIOLOGY ---
RAD REPORT: [facility] CT ANGIO RADIOLOGY REPORT: CORONARY CT ANGIOGRAPHY DATE: May 27, 2025 QUALITY: Excellent CLINICAL HISTORY AND INDICATION: [ chest pain ] TECHNIQUE: After obtaining a preliminary pump runner image, contrast imaging performed on an [employer] [id number] scanner. A dedicated, limited window, coronary imaging protocol was used, with single breath-hold, retrospective ECG gating, and automated arrhythmia rejection. 100 cc of low osmolar contrast agent: Omnipaque 350 was delivered via a 18-gauge IV catheter in the right antecubital fossa, using a power injector and followed by 60 cc of normal saline bolus as a chaser. Collimated images were reformatted at 0.5 mm intervals, and sent to an offline independent workstation for interpretation, using 3D anatomic reconstructions: Curved multiplanar reconstructions, maximum intensity projections, and multiplanar imaging. No metoprolol was administered prior to scanning due to low baseline heart rate. 0.4 mg SL nitroglycerin was given. CORONARY ARTERY DESCRIPTIONS: The coronary arteries arise in normal position. Left main coronary artery: Normal caliber vessel that trifurcates into the LAD, ramus and LCx. No stenosis. Left anterior descending coronary artery: Normal caliber vessel and gives rise to diagonal and septal branches. No stenosis. Ramus intermedius artery: Normal caliber, no stenosis. Left circumflex coronary artery: Normal caliber, nondominant and gives rise to a large OM branch. No stenosis. Right coronary artery: Large, dominant vessel giving rise to the PL and PDA branches. No stenosis. CAD-RADs: 0, absence of CAD. Thoracic Aorta: Normal diameter. Shania Avery MD Cardiovascular Disease [facility] SHANIA AVERY MD May 27, 2025 08:50
== END | disposition home or self-care (01) ==
LOC: RAH 07:40
PROVIDERS: ATTEND Internal Medicine
DX: K76.0 Fatty (change of) liver, not elsewhere classified (principal); I10 Essential (primary) hypertension; D73.89 Other diseases of spleen; R06.09 Other forms of dyspnea; R79.89 Other specified abnormal findings of blood chemistry
CPT/HCPCS: 75574; 76700; Q9967